=== PATIENT | female | born 2000 | race African-American/Black ===

== ENCOUNTER 2019-11-08 19:53 | Emergency (ER) | payer MEDICAID, OTHER ==
[~2019-11-08] VITALS: Ht 165.1 cm; Wt 52.2 kg
[2019-11-08] MEDS ORDERED: ACETAMINOPHEN 325 MG TAB PO ONE (20:15)
[2019-11-08 21:03] LABS: Urine Bacteria NONE SEEN /hpf (None Seen); Urine Blood 1+ /uL (Negative); Urine Hyaline Cast FEW /lpf (0 - 2); Urine Mucus MODERATE (None Seen); Urine Specific Gravity 1.023 (1.001-1.035); Urine WBC 5 /hpf (0 - 5)
[2019-11-08] MEDS ORDERED: IBUPROFEN 800 MG TAB PO ONE (23:30)
[2019-11-09 00:44] VITALS: BP 125/66
== END 2019-11-09 00:52 | disposition home or self-care (01) ==
LOC: ER 19:55
DX: N39.0 Urinary tract infection, site not specified (principal); E86.0 Dehydration; N94.6 Dysmenorrhea, unspecified
CPT/HCPCS: 81001

== ENCOUNTER 2023-12-31 21:04 | Emergency (ER) | payer MEDICAID ==
[~2023-12-31] VITALS: Ht 165.1 cm; Wt 72.7 kg
[2023-12-31 21:09] VITALS: BP 142/92; TEMP 98.6
[2023-12-31 21:20] VITALS: PULSE 97; RESP 16; O2SAT 100
== END 2023-12-31 21:32 | disposition home or self-care (01) ==
LOC: ER 21:04 → EDBD 21:04 → ER 21:23
DX: I47.10 Supraventricular tachycardia, unspecified (principal); F32.9 Major depressive disorder, single episode, unspecified
CPT/HCPCS: 93005